=== PATIENT | female | born 1975 | race Caucasian/White ===

== ENCOUNTER → 2017-09-25 | Outpatient (CLI) | payer BC ==
--- NOTE | 2017-09-25 11:46 | DIAGNOSTIC IMAGING REPORT ---
SOFT TISS HEAD/NECK-THYROID CLINICAL HISTORY: 42 years-old Female with THYROID NODULE. COMPARISON: None available TECHNIQUE: Multiple real time sonographic images of the thyroid were obtained accessing brizuela scale appearance and color doppler flow. FINDINGS: MEASUREMENTS: Right lobe: 4.8 x 1.5 x 1.6 cm Left lobe: 3.9 x 1.1 x 1.1 cm Isthmus: 0.1 cm PARENCHYMA: The thyroid parenchymal echotexture is homogeneous. Color flow is within normal limits. No focal hyperemia. NODULES: No discrete nodules are appreciated. IMPRESSION: Generally homogeneous thyroid parenchyma without discrete nodule identified. The above report was generated using voice recognition software. It may contain grammatical, syntax or spelling errors. Electronically signed by: Prakash Koch M.D. 09/25/2017 11:45 AM Dictated Date/Time: 09/25/2017 11:44 AM
== END | disposition home or self-care (01) ==
LOC: C.ULTR 10:56
PROVIDERS: ATTEND Nurse Practitioner Family
DX: E04.1 Nontoxic single thyroid nodule (principal); R00.0 Tachycardia, unspecified; F39 Unspecified mood [affective] disorder; R19.7 Diarrhea, unspecified